=== PATIENT | male | born 1985 | race Caucasian/White ===

== ENCOUNTER 2022-03-04 09:48 | Inpatient (IN) | payer OTHER ==
[2022-03-04 10:09] VITALS: BMI 24.8
[2022-03-04] MEDS ORDERED: guaiFENesin 200 MG/10 ML 10 ML UNIT-DOSE CUPS PO PRN (10:44)
[2022-03-04] MEDS ORDERED: MAG HYDROX/AL HYDROX/SIMETH 30 ML UNIT-DOSE CUP PO PRN (10:44)
[2022-03-04] MEDS ORDERED: BENZOCAINE/MENTHOL (CHLORASEPTIC ) LOZENGE MM PRN (10:44)
[2022-03-04] MEDS ORDERED: P-EPHED 60MG/TRIPROLIDI 2.5MG TABLET PO PRN (10:44)
[2022-03-04] MEDS ORDERED: LOPERAMIDE HCL 2 MG CAPSULE PO PRN (10:44)
[2022-03-04] MEDS ORDERED: MAGNESIUM CITRATE 300 ML BOTTLE PO PRN (10:44)
[2022-03-04] MEDS ORDERED: NICOTINE 10 MG CARTRIDGE (INHALER) IH PRN (10:44)
[2022-03-04] MEDS ORDERED: MAGNESIUM HYDROX 2400MG/30ML ORAL SUSPENSION 30 ML CUP PO PRN (10:44)
[2022-03-04] MEDS ORDERED: QUEtiapine FUMARATE 400 MG TABLET PO ONE (12:00)
[2022-03-04] MEDS: hydrOXYzine PAMOATE 25 MG CAPSULE (FP) PO SCH ×3 (14:54→21:30)
[2022-03-04] MEDS: THIAMINE HCL 100 MG TABLET (FP) PO SCH (21:30)
[2022-03-04] MEDS: MELATONIN 5 MG TABLETS PO SCH (21:30)
[2022-03-05] MEDS: hydrOXYzine PAMOATE 25 MG CAPSULE (FP) PO SCH ×5 (05:58→21:14)
[2022-03-05 09:07] LABS: HEMATOCRIT 34.6 % (35.4-49); HEMOGLOBIN 11.4 GM/dL (11.7-16.9); MCH 29.5 pg (25.7-33.7); MEAN CELL VOLUME 89.4 fl (80-96); MEAN PLT VOLUME 9.2 fl (7.5-11.1); PLATELET COUNT 294 10^3/uL (134-434); RBC 3.87 M/mm3 (4.00-5.60); RDW 14.6 % (11.9-15.9); WHITE BLOOD COUNT 9.1 K/mm3 (4.0-10.0)
[2022-03-05 09:12] LABS: URINE APPEARANCE CLEAR; URINE BILIRUBIN NEGATIVE (NEGATIVE); URINE COLOR YELLOW; URINE GLUCOSE (UA) NEGATIVE (NEGATIVE); URINE KETONE NEGATIVE (NEGATIVE); URINE LEUK ESTERASE NEGATIVE (NEGATIVE); URINE NITRITE NEGATIVE (NEGATIVE); URINE PROTEIN NEGATIVE (NEGATIVE)
[2022-03-05 09:26] LABS: CALCIUM 8.3 mg/dL (8.5-10.1)
[2022-03-05 09:27] LABS: BLOOD UREA NITROGEN 7.7 mg/dL (7-18)
[2022-03-05 09:28] LABS: CREATININE 0.8 mg/dL (0.55-1.3)
[2022-03-05 09:29] LABS: TOT PROT 6.3 g/dl (6.4-8.2)
[2022-03-05 09:30] LABS: BILIRUBIN,TOTAL 0.3 mg/dL (0.2-1)
[2022-03-05] MEDS: PRENATAL VITAMINS W/ FOLIC ACID TABLET (FP) PO SCH (09:57)
[2022-03-05] MEDS: QUEtiapine FUMARATE 200 MG TABLET PO SCH (09:57)
[2022-03-05 12:32] LABS: SYPHILIS W/ RPR CONF NON-REACTIVE (NONREACTIVE)
[2022-03-05] MEDS: THIAMINE HCL 100 MG TABLET (FP) PO SCH (21:13)
[2022-03-05] MEDS: MELATONIN 5 MG TABLETS PO SCH (21:13)
[2022-03-05] MEDS: QUEtiapine FUMARATE 400 MG TABLET PO SCH (21:13)
[2022-03-06] MEDS: hydrOXYzine PAMOATE 25 MG CAPSULE (FP) PO SCH ×5 (06:20→21:30)
[2022-03-06] MEDS: PRENATAL VITAMINS W/ FOLIC ACID TABLET (FP) PO SCH (09:35)
[2022-03-06] MEDS: QUEtiapine FUMARATE 200 MG TABLET PO SCH (09:36)
[2022-03-06] MEDS: QUEtiapine FUMARATE 400 MG TABLET PO SCH (21:29)
[2022-03-06] MEDS: MELATONIN 5 MG TABLETS PO SCH (21:30)
[2022-03-06] MEDS: THIAMINE HCL 100 MG TABLET (FP) PO SCH (21:30)
[2022-03-07] MEDS: hydrOXYzine PAMOATE 25 MG CAPSULE (FP) PO SCH ×3 (06:08→15:12)
[2022-03-07] MEDS: PRENATAL VITAMINS W/ FOLIC ACID TABLET (FP) PO SCH (09:54)
[2022-03-07] MEDS: QUEtiapine FUMARATE 200 MG TABLET PO SCH (09:54)
[2022-03-07] MEDS: QUEtiapine FUMARATE 400 MG TABLET PO SCH (21:02)
[2022-03-07] MEDS: CALCIUM 500MG/VIT-D 200 UNITS COMBO TABLET (FP) PO SCH (21:02)
[2022-03-07] MEDS: THIAMINE HCL 100 MG TABLET (FP) PO SCH (21:02)
[2022-03-07] MEDS: MELATONIN 5 MG TABLETS PO SCH (21:02)
[2022-03-08] MEDS: hydrOXYzine PAMOATE 25 MG CAPSULE (FP) PO PRN (06:58)
[2022-03-08] MEDS: QUEtiapine FUMARATE 200 MG TABLET PO SCH (10:18)
[2022-03-08] MEDS: PRENATAL VITAMINS W/ FOLIC ACID TABLET (FP) PO SCH (10:18)
[2022-03-08] MEDS: IBUPROFEN 400 MG TABLET (FP) PO PRN ×2 (10:50→21:38)
[2022-03-08] MEDS: MELATONIN 5 MG TABLETS PO SCH (21:36)
[2022-03-08] MEDS: THIAMINE HCL 100 MG TABLET (FP) PO SCH (21:36)
[2022-03-08] MEDS: QUEtiapine FUMARATE 400 MG TABLET PO SCH (21:36)
[2022-03-08] MEDS: CALCIUM 500MG/VIT-D 200 UNITS COMBO TABLET (FP) PO SCH (21:39)
[2022-03-09] MEDS: PRENATAL VITAMINS W/ FOLIC ACID TABLET (FP) PO SCH (09:47)
[2022-03-09] MEDS: QUEtiapine FUMARATE 200 MG TABLET PO SCH (09:47)
[2022-03-09] MEDS: CALCIUM 500MG/VIT-D 200 UNITS COMBO TABLET (FP) PO SCH (21:07)
[2022-03-09] MEDS: THIAMINE HCL 100 MG TABLET (FP) PO SCH (21:07)
[2022-03-09] MEDS: MELATONIN 5 MG TABLETS PO SCH (21:07)
[2022-03-09] MEDS: QUEtiapine FUMARATE 400 MG TABLET PO SCH (21:07)
[2022-03-10] MEDS: QUEtiapine FUMARATE 200 MG TABLET PO SCH (09:32)
[2022-03-10] MEDS: PRENATAL VITAMINS W/ FOLIC ACID TABLET (FP) PO SCH (09:32)
[2022-03-10] MEDS: MELATONIN 5 MG TABLETS PO SCH (21:20)
[2022-03-10] MEDS: THIAMINE HCL 100 MG TABLET (FP) PO SCH (21:20)
[2022-03-10] MEDS: CALCIUM 500MG/VIT-D 200 UNITS COMBO TABLET (FP) PO SCH (21:20)
[2022-03-10] MEDS: QUEtiapine FUMARATE 400 MG TABLET PO SCH (21:22)
[2022-03-11] MEDS: PRENATAL VITAMINS W/ FOLIC ACID TABLET (FP) PO SCH (09:44)
[2022-03-11] MEDS: QUEtiapine FUMARATE 400 MG TABLET PO SCH ×2 (09:44→21:49)
[2022-03-11] MEDS: THIAMINE HCL 100 MG TABLET (FP) PO SCH (21:48)
[2022-03-11] MEDS: MELATONIN 5 MG TABLETS PO SCH (21:48)
[2022-03-11] MEDS: CALCIUM 500MG/VIT-D 200 UNITS COMBO TABLET (FP) PO SCH (21:49)
[2022-03-12] MEDS: PRENATAL VITAMINS W/ FOLIC ACID TABLET (FP) PO SCH (10:19)
[2022-03-12] MEDS: QUEtiapine FUMARATE 400 MG TABLET PO SCH ×2 (10:19→21:11)
[2022-03-12] MEDS: MELATONIN 5 MG TABLETS PO SCH (21:11)
[2022-03-12] MEDS: THIAMINE HCL 100 MG TABLET (FP) PO SCH (21:11)
[2022-03-12] MEDS: CALCIUM 500MG/VIT-D 200 UNITS COMBO TABLET (FP) PO SCH (21:11)
[2022-03-13] MEDS: QUEtiapine FUMARATE 400 MG TABLET PO SCH ×2 (09:58→21:10)
[2022-03-13] MEDS: PRENATAL VITAMINS W/ FOLIC ACID TABLET (FP) PO SCH (09:58)
[2022-03-13] MEDS: CALCIUM 500MG/VIT-D 200 UNITS COMBO TABLET (FP) PO SCH (21:10)
[2022-03-13] MEDS: MELATONIN 5 MG TABLETS PO SCH (21:10)
[2022-03-13] MEDS: IBUPROFEN 400 MG TABLET (FP) PO PRN (21:10)
[2022-03-13] MEDS: THIAMINE HCL 100 MG TABLET (FP) PO SCH (21:10)
[2022-03-14] MEDS: PRENATAL VITAMINS W/ FOLIC ACID TABLET (FP) PO SCH (10:53)
[2022-03-14] MEDS: QUEtiapine FUMARATE 400 MG TABLET PO SCH ×2 (10:53→21:03)
[2022-03-14] MEDS: MELATONIN 5 MG TABLETS PO SCH (21:03)
[2022-03-14] MEDS: THIAMINE HCL 100 MG TABLET (FP) PO SCH (21:03)
[2022-03-14] MEDS: CALCIUM 500MG/VIT-D 200 UNITS COMBO TABLET (FP) PO SCH (21:03)
[2022-03-15] MEDS: PRENATAL VITAMINS W/ FOLIC ACID TABLET (FP) PO SCH (09:59)
[2022-03-15] MEDS: QUEtiapine FUMARATE 400 MG TABLET PO SCH ×2 (09:59→21:04)
[2022-03-15] MEDS: CALCIUM 500MG/VIT-D 200 UNITS COMBO TABLET (FP) PO SCH (21:04)
[2022-03-15] MEDS: MELATONIN 5 MG TABLETS PO SCH (21:05)
[2022-03-15] MEDS: THIAMINE HCL 100 MG TABLET (FP) PO SCH (21:05)
[2022-03-16] MEDS: PRENATAL VITAMINS W/ FOLIC ACID TABLET (FP) PO SCH ×2 (11:04→11:16)
[2022-03-16] MEDS: QUEtiapine FUMARATE 400 MG TABLET PO SCH ×3 (11:04→21:19)
[2022-03-16] MEDS: CALCIUM 500MG/VIT-D 200 UNITS COMBO TABLET (FP) PO SCH (21:19)
[2022-03-16] MEDS: MELATONIN 5 MG TABLETS PO SCH (21:19)
[2022-03-16] MEDS: THIAMINE HCL 100 MG TABLET (FP) PO SCH (21:19)
[2022-03-17] MEDS: hydrOXYzine PAMOATE 25 MG CAPSULE (FP) PO PRN (06:27)
[2022-03-17] MEDS: QUEtiapine FUMARATE 400 MG TABLET PO SCH ×2 (11:06→21:26)
[2022-03-17] MEDS: PRENATAL VITAMINS W/ FOLIC ACID TABLET (FP) PO SCH (11:06)
[2022-03-17] MEDS: THIAMINE HCL 100 MG TABLET (FP) PO SCH (21:26)
[2022-03-17] MEDS: CALCIUM 500MG/VIT-D 200 UNITS COMBO TABLET (FP) PO SCH (21:27)
[2022-03-17] MEDS: MELATONIN 5 MG TABLETS PO SCH (21:27)
[2022-03-18] MEDS: IBUPROFEN 400 MG TABLET (FP) PO PRN (06:40)
[2022-03-18] MEDS: QUEtiapine FUMARATE 400 MG TABLET PO SCH ×2 (10:31→21:08)
[2022-03-18] MEDS: PRENATAL VITAMINS W/ FOLIC ACID TABLET (FP) PO SCH (10:32)
[2022-03-18] MEDS: MELATONIN 5 MG TABLETS PO SCH (21:09)
[2022-03-18] MEDS: THIAMINE HCL 100 MG TABLET (FP) PO SCH (21:09)
[2022-03-18] MEDS: CALCIUM 500MG/VIT-D 200 UNITS COMBO TABLET (FP) PO SCH (21:09)
[2022-03-19] MEDS: QUEtiapine FUMARATE 400 MG TABLET PO SCH ×2 (11:56→21:24)
[2022-03-19] MEDS: PRENATAL VITAMINS W/ FOLIC ACID TABLET (FP) PO SCH (11:56)
[2022-03-19] MEDS: MELATONIN 5 MG TABLETS PO SCH (21:24)
[2022-03-19] MEDS: CALCIUM 500MG/VIT-D 200 UNITS COMBO TABLET (FP) PO SCH (21:24)
[2022-03-19] MEDS: THIAMINE HCL 100 MG TABLET (FP) PO SCH (21:24)
[2022-03-20] MEDS: PRENATAL VITAMINS W/ FOLIC ACID TABLET (FP) PO SCH (10:00)
[2022-03-20] MEDS: QUEtiapine FUMARATE 400 MG TABLET PO SCH ×2 (10:01→21:08)
[2022-03-20] MEDS: BACITRACIN 0.9 GM PACKET TP SCH (14:18)
[2022-03-20] MEDS: THIAMINE HCL 100 MG TABLET (FP) PO SCH (21:08)
[2022-03-20] MEDS: CALCIUM 500MG/VIT-D 200 UNITS COMBO TABLET (FP) PO SCH (21:08)
[2022-03-20] MEDS: MELATONIN 5 MG TABLETS PO SCH (21:08)
[2022-03-21] MEDS: BACITRACIN 0.9 GM PACKET TP SCH (12:38)
[2022-03-21] MEDS: QUEtiapine FUMARATE 400 MG TABLET PO SCH ×2 (12:39→21:04)
[2022-03-21] MEDS: PRENATAL VITAMINS W/ FOLIC ACID TABLET (FP) PO SCH (12:39)
[2022-03-21] MEDS: MELATONIN 5 MG TABLETS PO SCH (21:04)
[2022-03-21] MEDS: CALCIUM 500MG/VIT-D 200 UNITS COMBO TABLET (FP) PO SCH (21:04)
[2022-03-21] MEDS: THIAMINE HCL 100 MG TABLET (FP) PO SCH (21:05)
[2022-03-22] MEDS: BACITRACIN 0.9 GM PACKET TP SCH (10:17)
[2022-03-22] MEDS: QUEtiapine FUMARATE 400 MG TABLET PO SCH ×2 (10:17→21:18)
[2022-03-22] MEDS: IBUPROFEN 400 MG TABLET (FP) PO PRN ×2 (10:18→19:09)
[2022-03-22] MEDS: PRENATAL VITAMINS W/ FOLIC ACID TABLET (FP) PO SCH (10:18)
[2022-03-22] MEDS: MELATONIN 5 MG TABLETS PO SCH (21:18)
[2022-03-22] MEDS: CALCIUM 500MG/VIT-D 200 UNITS COMBO TABLET (FP) PO SCH (21:18)
[2022-03-22] MEDS: THIAMINE HCL 100 MG TABLET (FP) PO SCH (21:18)
[2022-03-23] MEDS: ACETAMINOPHEN 325 MG TABLET (FP) PO PRN ×2 (06:37→14:33)
[2022-03-23] MEDS: QUEtiapine FUMARATE 400 MG TABLET PO SCH ×2 (10:26→23:18)
[2022-03-23] MEDS: PRENATAL VITAMINS W/ FOLIC ACID TABLET (FP) PO SCH (10:26)
[2022-03-23] MEDS: BACITRACIN 0.9 GM PACKET TP SCH (10:26)
[2022-03-23 10:31] LABS: HEMATOCRIT 36.3 % (35.4-49); HEMOGLOBIN 12.5 GM/dL (11.7-16.9); MCH 30.6 pg (25.7-33.7); MCHC 34.4 g/dl (32.0-35.9); MEAN CELL VOLUME 88.9 fl (80-96); MEAN PLT VOLUME 8.6 fl (7.5-11.1); PLATELET COUNT 345 10^3/uL (134-434); RBC 4.08 M/mm3 (4.00-5.60); RDW 14.4 % (11.9-15.9); WHITE BLOOD COUNT 15.7 K/mm3 (4.0-10.0)
[2022-03-23 10:47] LABS: CALCIUM 8.8 mg/dL (8.5-10.1)
[2022-03-23 10:48] LABS: ALBUMIN 3.7 g/dl (3.4-5.0); BLOOD UREA NITROGEN 12.9 mg/dL (7-18)
[2022-03-23 10:51] LABS: CREATININE 0.9 mg/dL (0.55-1.3)
[2022-03-23 10:52] LABS: BILIRUBIN,TOTAL 0.4 mg/dL (0.2-1); TOT PROT 7.8 g/dl (6.4-8.2)
[2022-03-23] MEDS: AMOXICILLIN 500 MG CAPSULE (FP) PO SCH ×2 (14:33→23:17)
[2022-03-23] MEDS: MELATONIN 5 MG TABLETS PO SCH (23:17)
[2022-03-23] MEDS: CALCIUM 500MG/VIT-D 200 UNITS COMBO TABLET (FP) PO SCH (23:17)
[2022-03-23] MEDS: THIAMINE HCL 100 MG TABLET (FP) PO SCH (23:18)
[2022-03-24] MEDS: AMOXICILLIN 500 MG CAPSULE (FP) PO SCH ×3 (06:09→21:03)
[2022-03-24] MEDS: PRENATAL VITAMINS W/ FOLIC ACID TABLET (FP) PO SCH (09:19)
[2022-03-24] MEDS: BACITRACIN 0.9 GM PACKET TP SCH (09:19)
[2022-03-24] MEDS: QUEtiapine FUMARATE 400 MG TABLET PO SCH ×2 (09:20→21:03)
[2022-03-24] MEDS: hydrOXYzine PAMOATE 25 MG CAPSULE (FP) PO PRN (21:03)
[2022-03-24] MEDS: THIAMINE HCL 100 MG TABLET (FP) PO SCH (21:03)
[2022-03-24] MEDS: MELATONIN 5 MG TABLETS PO SCH (21:03)
[2022-03-24] MEDS: CALCIUM 500MG/VIT-D 200 UNITS COMBO TABLET (FP) PO SCH (21:04)
[2022-03-24] MEDS: ACETAMINOPHEN 325 MG TABLET (FP) PO PRN (21:04)
[2022-03-25] MEDS: AMOXICILLIN 500 MG CAPSULE (FP) PO SCH ×3 (06:19→21:15)
[2022-03-25] MEDS: ACETAMINOPHEN 325 MG TABLET (FP) PO PRN (06:19)
[2022-03-25] MEDS: PRENATAL VITAMINS W/ FOLIC ACID TABLET (FP) PO SCH (10:48)
[2022-03-25] MEDS: BACITRACIN 0.9 GM PACKET TP SCH (10:49)
[2022-03-25] MEDS: QUEtiapine FUMARATE 400 MG TABLET PO SCH ×2 (10:49→21:16)
[2022-03-25] MEDS: MELATONIN 5 MG TABLETS PO SCH (21:15)
[2022-03-25] MEDS: THIAMINE HCL 100 MG TABLET (FP) PO SCH (21:16)
[2022-03-25] MEDS: CALCIUM 500MG/VIT-D 200 UNITS COMBO TABLET (FP) PO SCH (21:16)
[2022-03-26] MEDS: AMOXICILLIN 500 MG CAPSULE (FP) PO SCH ×3 (06:21→21:11)
[2022-03-26] MEDS: PRENATAL VITAMINS W/ FOLIC ACID TABLET (FP) PO SCH (09:37)
[2022-03-26] MEDS: QUEtiapine FUMARATE 400 MG TABLET PO SCH ×2 (09:37→21:12)
[2022-03-26] MEDS: BACITRACIN 0.9 GM PACKET TP SCH (09:37)
[2022-03-26] MEDS: ACETAMINOPHEN 325 MG TABLET (FP) PO PRN (09:38)
[2022-03-26] MEDS: THIAMINE HCL 100 MG TABLET (FP) PO SCH (21:11)
[2022-03-26] MEDS: MELATONIN 5 MG TABLETS PO SCH (21:11)
[2022-03-26] MEDS: CALCIUM 500MG/VIT-D 200 UNITS COMBO TABLET (FP) PO SCH (21:11)
[2022-03-27] MEDS: AMOXICILLIN 500 MG CAPSULE (FP) PO SCH ×3 (06:33→21:08)
[2022-03-27] MEDS: QUEtiapine FUMARATE 400 MG TABLET PO SCH ×2 (10:16→21:08)
[2022-03-27] MEDS: PRENATAL VITAMINS W/ FOLIC ACID TABLET (FP) PO SCH (10:16)
[2022-03-27] MEDS: BACITRACIN 0.9 GM PACKET TP SCH (10:16)
[2022-03-27] MEDS: CALCIUM 500MG/VIT-D 200 UNITS COMBO TABLET (FP) PO SCH (21:08)
[2022-03-27] MEDS: ACETAMINOPHEN 325 MG TABLET (FP) PO PRN (21:09)
[2022-03-27] MEDS: THIAMINE HCL 100 MG TABLET (FP) PO SCH (21:09)
[2022-03-27] MEDS: MELATONIN 5 MG TABLETS PO SCH (21:09)
[2022-03-28] MEDS: AMOXICILLIN 500 MG CAPSULE (FP) PO SCH ×3 (06:39→21:04)
[2022-03-28] MEDS: PRENATAL VITAMINS W/ FOLIC ACID TABLET (FP) PO SCH (09:49)
[2022-03-28] MEDS: BACITRACIN 0.9 GM PACKET TP SCH (09:49)
[2022-03-28] MEDS: QUEtiapine FUMARATE 400 MG TABLET PO SCH ×2 (09:49→21:04)
[2022-03-28] MEDS: ACETAMINOPHEN 325 MG TABLET (FP) PO PRN (14:16)
[2022-03-28] MEDS: MELATONIN 5 MG TABLETS PO SCH (21:03)
[2022-03-28] MEDS: THIAMINE HCL 100 MG TABLET (FP) PO SCH (21:03)
[2022-03-28] MEDS: CALCIUM 500MG/VIT-D 200 UNITS COMBO TABLET (FP) PO SCH (21:04)
[2022-03-29] MEDS: AMOXICILLIN 500 MG CAPSULE (FP) PO SCH ×3 (06:31→21:08)
[2022-03-29] MEDS: PRENATAL VITAMINS W/ FOLIC ACID TABLET (FP) PO SCH (09:44)
[2022-03-29] MEDS: BACITRACIN 0.9 GM PACKET TP SCH (09:44)
[2022-03-29] MEDS: QUEtiapine FUMARATE 400 MG TABLET PO SCH ×2 (09:44→21:08)
[2022-03-29] MEDS: THIAMINE HCL 100 MG TABLET (FP) PO SCH (21:08)
[2022-03-29] MEDS: MELATONIN 5 MG TABLETS PO SCH (21:08)
[2022-03-29] MEDS: CALCIUM 500MG/VIT-D 200 UNITS COMBO TABLET (FP) PO SCH (21:08)
[2022-03-30] MEDS: AMOXICILLIN 500 MG CAPSULE (FP) PO SCH (06:07)
[2022-03-30] MEDS: PRENATAL VITAMINS W/ FOLIC ACID TABLET (FP) PO SCH (09:27)
[2022-03-30] MEDS: QUEtiapine FUMARATE 400 MG TABLET PO SCH ×2 (09:27→21:14)
[2022-03-30] MEDS: BACITRACIN 0.9 GM PACKET TP SCH (09:27)
[2022-03-30] MEDS: THIAMINE HCL 100 MG TABLET (FP) PO SCH (21:14)
[2022-03-30] MEDS: MELATONIN 5 MG TABLETS PO SCH (21:14)
[2022-03-30] MEDS: CALCIUM 500MG/VIT-D 200 UNITS COMBO TABLET (FP) PO SCH (21:14)
[2022-03-31 07:08] VITALS: BP 139/98; PULSE 99; RESP 16; TEMP 98.2
[2022-03-31] MEDS: BACITRACIN 0.9 GM PACKET TP SCH (09:16)
[2022-03-31] MEDS: PRENATAL VITAMINS W/ FOLIC ACID TABLET (FP) PO SCH (09:16)
[2022-03-31] MEDS: QUEtiapine FUMARATE 400 MG TABLET PO SCH (09:16)
== END 2022-03-31 09:35 | disposition home or self-care (01) | DRG 772 ==
LOC: YASAS 09:48 → Y5N 13:31 → Y3W 14:10
PROVIDERS: ADMIT Allergy & Immunology; ATTEND Psychiatry & Neurology Pain Medicine
PROC: HZ42ZZZ Group Counseling for Substance Abuse Treatment, Cognitive-Behavioral (ICD-10-PCS; principal; 2022-03-04)
DX: F14.20 Cocaine dependence, uncomplicated (principal); F11.10 Opioid abuse, uncomplicated; F12.10 Cannabis abuse, uncomplicated; F25.9 Schizoaffective disorder, unspecified; F31.9 Bipolar disorder, unspecified; J02.0 Streptococcal pharyngitis; B95.0 Streptococcus, group A, as the cause of diseases classified elsewhere; R00.0 Tachycardia, unspecified; R50.9 Fever, unspecified
CPT/HCPCS: 36415; 80053; 81003; 85027; 86780; 86803; 93005; 93010; C9803-CS; U0003; U0005

== ENCOUNTER 2022-03-23 19:39 | Emergency (ER) | payer OTHER ==
[2022-03-23 19:59] VITALS: BP 126/75; PULSE 111; RESP 18; TEMP 98.8; BMI 30.9
[2022-03-23] MEDS ORDERED: SODIUM CHLORIDE IV ONE (20:28)
[2022-03-23] MEDS ORDERED: FOLIC ACID INJECTION - 1 MG, THIAMINE HCL 100 MG, MULTIVIT INJECTION ADULT 10 ML in SOD... IVPB ONE (20:30)
[2022-03-23 21:03] LABS: VENOUS BASE EXCESS 2.6 mmol/L (-2-2); VENOUS O2 SATURATION 79.8 % (70-80); VENOUS PCO2 43.2 mmHg (38-52); VENOUS PH 7.42 (7.310-7.410)
[2022-03-23 21:14] LABS: BASO % 0.8 % (0-2.0); EOS % 1.2 % (0-4.5); HEMATOCRIT 36.1 % (35.4-49); MCH 29.2 pg (25.7-33.7); MCHC 33.4 g/dl (32.0-35.9); MEAN CELL VOLUME 87.3 fl (80-96); MEAN PLT VOLUME 8.8 fl (7.5-11.1); MONO % 11.2 % (3.8-10.2); NEUT % 69.8 % (42.8-82.8); PLATELET COUNT 329 10^3/uL (134-434); RBC 4.13 M/mm3 (4.00-5.60); RDW 14.4 % (11.9-15.9); WHITE BLOOD COUNT 14.5 K/mm3 (4.0-10.0)
[2022-03-23 21:26] LABS: INR 0.98 (0.83-1.09); PROTHROMBIN TIME (PATIENT) 11.3 SEC (9.7-13.0)
[2022-03-23 21:27] LABS: ACTIVATED PTT 30.1 SECONDS (25.2-36.5)
[2022-03-23 21:37] LABS: CHLORIDE 106 mmol/L (98-107); SODIUM 135 mmol/L (136-145)
[2022-03-23 21:39] LABS: CALCIUM 8.2 mg/dL (8.5-10.1); GLUCOSE,RANDOM 96 mg/dL (74-106)
[2022-03-23 21:40] LABS: ALBUMIN 3.2 g/dl (3.4-5.0); BLOOD UREA NITROGEN 16.6 mg/dL (7-18); CO2 25 mmol/L (21-32)
[2022-03-23 21:43] LABS: CREATININE 0.8 mg/dL (0.55-1.3); SGOT/AST 134 U/L (15-37)
[2022-03-23 21:44] LABS: BILIRUBIN,TOTAL 0.3 mg/dL (0.2-1); TOT PROT 7.7 g/dl (6.4-8.2)
[2022-03-23 21:45] LABS: ALK PHOS 105 U/L (45-117)
[2022-03-23 21:48] LABS: ANION GAP 4 MMOL/L (8-16); SGPT/ALT 256 U/L (13-61)
[2022-03-24] MEDS ORDERED: PENICILLIN G BENZATHINE 1,200,000 UNIT/2 ML PFS IM ONE ×2 (00:34→00:43)
[2022-03-24 01:12] LABS: URINE APPEARANCE CLEAR; URINE BILIRUBIN NEGATIVE (NEGATIVE); URINE COLOR YELLOW; URINE GLUCOSE (UA) NEGATIVE (NEGATIVE); URINE KETONE NEGATIVE (NEGATIVE); URINE LEUK ESTERASE NEGATIVE (NEGATIVE); URINE NITRITE NEGATIVE (NEGATIVE); URINE PROTEIN NEGATIVE (NEGATIVE); URINE UROBILINOGEN 0.2 mg/dL (0.2-1.0)
== END 2022-03-24 00:53 | disposition home or self-care (01) ==
LOC: JER 19:39
PROC: 3E033GC Introduction of Other Therapeutic Substance into Peripheral Vein, Percutaneous Approach (ICD-10-PCS; principal; 2022-03-23)
PROC: 3E03329 Introduction of Other Anti-infective into Peripheral Vein, Percutaneous Approach (ICD-10-PCS; 2022-03-23)
PROC: 3E0337Z Introduction of Electrolytic and Water Balance Substance into Peripheral Vein, Percutaneous Approach (ICD-10-PCS; 2022-03-23)
PROC: 3E0337Z Introduction of Electrolytic and Water Balance Substance into Peripheral Vein, Percutaneous Approach (ICD-10-PCS; 2022-03-23)
DX: J02.9 Acute pharyngitis, unspecified (principal)
CPT/HCPCS: 0241U-QW; 36415; 70491-TC; 71046-TC-FY; 73562-TC-RT-FY; 73630-TC-LT; 73630-TC-RT-FY; 80053; 81003; 82550; 82553; 82803; 83605; 84484; 85025; 85610; 85730; 86308; 87040; 87086; 87651; 93005; 93010; 99285-25; Q9967